=== PATIENT | female | born 2000 | race Caucasian/White ===

== ENCOUNTER 2023-02-23 12:23 | Emergency (ER) | payer OTHER, MEDICAID, SELFPAY ==
[2023-02-23 12:24] VITALS: BP 103/69; PULSE 89; RESP 18; TEMP 36.4; O2SAT 100; BMI 26.1
--- NOTE | 2023-02-23 12:48 | ED.VIS.GI ---
HPI HPI - GI History of Present Illness Chief Complaint: Abd Pain Narrative Narrative: 22-year-old female presenting with epigastric burning and nausea. She states that last night before bed she ate. She woke up at 1 AM with nausea and burning in her stomach. She had a little bit of diarrhea. No fevers or chills. No urinary or vaginal complaints. Patient has no concern for . PFSH PFSH Medical History no medical history Home Medications famotidine 20 mg tablet (Pepcid) 20 mg PO BID PRN dyspepsia #20 tabs 02/23/23 [Rx Last Taken Unknown] ondansetron 4 mg disintegrating tablet 4 mg PO Q8H PRN PRN Nausea #14 tabs 02/23/23 [Rx Last Taken Unknown] Allergy/AdvReac Type Severity Reaction Status Date / Time amoxicillin Allergy Rash Verified 02/23/23 12:26 Penicillins Allergy Rash Verified 02/23/23 12:26 Family History no significant family his Surgical History no surgical history Social History Smoking Status: Never smoker ROS ROS ED Constitutional Constitutional ED: Denies chills, fever(s) or sweats Eyes Eyes: Denies blurry vision or change in vision ENT ENT ED: Denies ear pain or sore throat Cardiovascular Cardiovascular: Denies chest pain, palpitations or racing heartbeat Respiratory/Chest Respiratory/Chest: Denies cough, dyspnea or sputum Gastrointestinal Gastrointestinal: Reports abdominal pain, diarrhea and nausea; Denies constipation or vomiting Genitourinary Genitourinary ED: Denies dysuria, hematuria or urinary frequency Musculoskeletal Musculoskeletal: Denies arthralgias, myalgias or neck pain Integumentary Denies abscess, Abrasions or rash Neurologic Neurologic: Denies headache(s), paresthesias or weakness Psychiatric Psychiatric: Denies anxiety, depression, suicidal ideation or suicidal thoughts Endocrine Endocrinology: Denies polydipsia or polyuria EXAM Physical Exam Const Vital Signs: 02/23/23 12:24 Temperature 97.5 F L Temperature Source Temporal Pulse Rate 89 Respiratory Rate 18 Blood Pressure 103/69 Blood Pressure Mean 80 Pulse Ox 100 Oxygen Delivery Method Room Air Positive well nourished General Appearance ED: NAD; Negative for pallor HEENT Reports moist mucous membranes normocephalic and atraumatic Resp normal respiratory effort Cardio regular rate and regular rhythm GI GI Narrative: Mild epigastric tenderness. Palpation: Negative for guarding, rigid, hepatomegaly or hernia Back/Spine no CVA tenderness Neuro CN's II-XII intact bilaterally Sensorium / Orientation: alert Motor Exam: strength 5/5 throughout Psych mental status grossly normal Skin General Skin Exam: Negative for jaundice or pallor MDM MDM MDM Narrative Medical decision making narrative: 22-year-old female with epigastric burning and nausea after eating pizza [employer] last night for dinner. I suspect this is likely gastritis/GERD. She is given Zofran and a GI cocktail. On reevaluation at 215 the patient is doing well. She states her symptoms have resolved. I think she is okay to go home with Zofran and Pepcid. I counseled her on foods to avoid. I do not believe she needs blood work or imaging. Return precautions discussed. Impression: 1. Gastritis Discharge Plan Triage Chief Complaint: Abd Pain ED Provider: Mario Elizondo Dx/Rx/DC Orders Prescriptions: New ondansetron 4 mg tablet,disintegrating 4 mg PO Q8H PRN PRN (Reason: Nausea) Qty: 14 0RF famotidine [Pepcid] 20 mg tablet 20 mg PO BID PRN (Reason: dyspepsia) Qty: 20 0RF Primary Care Provider: Care Physician,No Primary Referrals: Elena Moon DO [Med Staff - Active Staff] - 3-5 Days Care Physician,No Primary [Primary Care Provider] - Disposition Disposition: Home, Self Care
[2023-02-23] MEDS: Ondansetron 8 MG Tablet 4 MG PO (13:12)
[2023-02-23] MEDS: Mag Hydrox/Al Hydrox/Simeth 30 ML UDC PO (13:28)
[2023-02-23 14:41] VITALS: PULSE 89; RESP 18; O2SAT 100
== END 2023-02-23 14:41 | disposition home or self-care (01) ==
PROVIDERS: Emergency Provider Student in an Organized Health Care Education/Training Program; Visit Provider Student in an Organized Health Care Education/Training Program
DX: K29.70 Gastritis, unspecified, without bleeding (principal)
CPT/HCPCS: 99283

== ENCOUNTER 2025-01-05 10:29 | Emergency (ER) | payer MEDICAID, SELFPAY ==
[2025-01-05 10:30] VITALS: BP 116/64; PULSE 86; RESP 14; TEMP 35.9; O2SAT 100; BMI 29.0
--- NOTE | 2025-01-05 10:46 | CT_ITS ---
EXAM: CT Head Without Intravenous Contrast CLINICAL INDICATION: LEFT SIDE NUMBNESS AND TINGLING, STARTED YESTERDAY TECHNIQUE: Axial computed tomography images of the head/brain without intravenous contrast. This CT exam was performed using one or more of the following dose reduction techniques: automated exposure control, adjustment of the mA and/or kV according to patient size, and/or use of iterative reconstruction technique. COMPARISON: No relevant prior studies available. FINDINGS: BRAIN AND EXTRA-AXIAL SPACES: No acute intracranial hemorrhage, midline shift or mass effect. If symptoms persist, further evaluation with MRI is recommended. No significant white matter disease. BONES/JOINTS: Unremarkable. No acute fracture. SOFT TISSUES: Unremarkable. SINUSES: Unremarkable as visualized. No acute sinusitis. MASTOID AIR CELLS: Unremarkable as visualized. No mastoid effusion. CT/Brain/Head without Contrast IMPRESSION: No acute intracranial hemorrhage, midline shift or mass effect. If symptoms per sist, further evaluation with MRI is recommended. Reading Location: [id number]
--- NOTE | 2025-01-05 10:47 | EX.ED.DYSGE1 ---
HPI History of Present Illness Chief Complaint: Neuro S/Sx Narrative Narrative: Patient is a 24-year-old female currently 6 weeks with no other known past medical history who presents to the emergency department with a chief complaint of chest pain, left arm pain and numbness that started yesterday while at work. 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 Patient states that has been constant since then nothing has made this better or worse she states that she just laid down and went to bed last night. Patient significant other at bedside and states he was unsure if there was some drugs on the money that she was handed causing her symptoms as she was not feeling her normal self. States that since her symptoms not getting better today she came here for further evaluation management. PFSH PFS Medical History no medical history Home Medications ?Medication ?Instructions ?Recorded ?Last Taken ?Type NK 01/05/25 Unknown History Allergy/AdvReac Type Severity Reaction Status Date / Time amoxicillin Allergy Rash Verified 01/05/25 10:30 Penicillins Allergy Rash Verified 01/05/25 10:30 Family History no significant family his Surgical History no surgical history Social History Smoking Status: Current every day smoker tobacco type: smokeless tobacco ROS ROS ED ROS Narrative Constitutional: Denies fevers, chills, headaches, lightness, dizziness Eyes: Denies change in vision double vision blurry vision Cardiovascular: Complains of chest pain as noted above denies palpitations Respiratory: Denies coughing wheezing Abdomen: Denies abdominal pain nausea vomit diarrhea Genitourinary: Denies any urinary symptoms : Denies any urinary symptoms Neurological: Denies numbness, weakness, tingling Musculoskeletal: Denies back pain Skin: Denies rashes or lesions EXAM Physical Exam Narrative Exam Narrative: General: Patient lying in bed rest comfortably did not appear to be in acute distress Head: Atraumatic, normocephalic Eyes: PERRL bilaterally, EOMI bilaterally, no conjunctival injection noted Neck: Soft, supple, trachea midline Cardiovascular: Regular rate and rhythm no murmurs gallops rubs noted Respiratory: Clear to auscultation bilaterally Abdomen: Soft, nondistended, tender to palpation Extremities: +5/5 strength noted in the bilateral upper and lower extremities, radial pulses +2/4 in the bilateral extremities Neurological: Patient following commands knew that she was at [facility] the year is 2024 sensation grossly intact, NIH is 0 GCS 15 patient completed finger-nose test bilaterally without any difficulty Skin: Warm, dry, intact no rashes lesions noted Const Vital Signs: 01/05/25 10:30 01/05/25 10:59 01/05/25 11:32 Temperature 96.7 F L Temperature Source Temporal Pulse Rate 86 87 Respiratory Rate 14 19 H Blood Pressure 116/64 109/65 Blood Pressure Mean 81 79 Pulse Ox 100 100 Oxygen Delivery Method Room Air Room Air Room Air 01/05/25 12:00 Temperature Temperature Source Pulse Rate 77 Respiratory Rate 20 H Blood Pressure 113/58 L Blood Pressure Mean 76 Pulse Ox 98 Oxygen Delivery Method Room Air MDM MDM MDM Narrative Medical decision making narrative: Patient is a 24-year-old female who presented to the emergency department chief complaint of chest pain with pain rating down her left arm as well as numbness that has been persistent since this started yesterday afternoon. On the differential diagnose includes but not limited to ACS, pneumonia, pneumothorax, central venous sinus thrombosis, anxiety, accidental drug exposure. Once workup is obtained reviewed she will be reevaluated. Patient CBC was reviewed and showed no evidence leukocytosis white blood count normal at 7.5, hemoglobin was 10.9, plate count normal at 215. Sodium was normal 137, potassium normal 3.9, creatinine was 0.61. Patient's troponin was less than 6, EKG showed sinus rhythm with a rate of 81 bpm. Patient's urinalysis did not reveal any evidence of infection. Patient's drug screen negative. Patient's chest x-ray reviewed by myself and by radiology which showed no acute cardiopulmonary processes. Patient CT head and brain without contrast showed no acute intracranial hemorrhage midline shift or mass effect. On reevaluation the patient she is feeling better she like to go home at this point time. She was advised that she needs to start taking vitamins as she is currently and she is advised that she needs to follow-up with her VOCATIONAL TECHNICAL EDUCATION DIRECTOR in the outpatient setting. She was encouraged to return for worsening symptoms and concerns. She is agreeable this plan all question concerns answered she was discharged home in stable condition. Lab Data Labs: Laboratory Results - last 24 hr 01/05/25 01/05/25 10:56 11:03 WBC 7.5 RBC 4.72 Hgb 10.9 L Hct 34.5 L MCV 73.1 L MCH 23.1 L MCHC 31.6 L RDW Std Deviation 48.2 H RDW Coeff of Denis 18.5 H Plt Count 215 MPV 9.7 Immature Gran % (Auto) 0.400 Neut % (Auto) 63.4 Lymph % (Auto) 26.2 [place] % (Auto) 7.6 Eos % (Auto) 1.9 Baso % (Auto) 0.5 Absolute Neuts (auto) 4.8 Absolute Lymphs (auto) 1.96 Nucleated RBC % 0 Sodium 137 Potassium 3.9 Chloride 105 Carbon Dioxide 22.3 Anion Gap 10 BUN 10 Creatinine 0.61 L Estim Creat Clear Calc 145.17 Est GFR (MDRD) Non-Af 126 BUN/Creatinine Ratio 17.0 Glucose 95 Calcium 9.3 Troponin T High Sens < 6 Urine Color Straw Urine Clarity Clear Urine pH 6.5 Ur Specific [place] 1.010 Urine Protein Negative Urine Glucose (UA) Normal Urine Ketones Negative Urine Occult Blood Negative Urine Nitrite Negative Urine Bilirubin Negative Urine Urobilinogen Normal Ur Leukocyte Esterase Negative Urine RBC 0 SEEN Urine WBC 0 SEEN Ur Squamous Epith Cells 0-5 SEEN Urine Bacteria 0 SEEN Urine Mucus 0 SEEN Urine Opiates Screen NEGATIVE U Buprenorphine Qual NEGATIVE Ur Oxycodone Screen NEGATIVE Urine Methadone Screen NEGATIVE Urine Fentanyl Screen NEGATIVE Ur Barbiturates Screen NEGATIVE Ur Phencyclidine Scrn NEGATIVE Ur Amphetamines Screen NEGATIVE U Benzodiazepines Scrn NEGATIVE Urine Cocaine Screen NEGATIVE U Cannabinoids Screen NEGATIVE Radiography Diagnostic Testing: Clinical Impression(s) from Imaging Studies Brain CT 01/05/25 10:46 IMPRESSION: No acute intracranial hemorrhage, midline shift or mass effect. If symptoms persist, further evaluation with MRI is recommended. Reading Location: [facility] Chest X-Ray 01/05/25 11:10 IMPRESSION: No acute cardiopulmonary process. Reading Location: [facility] Discharge Plan Triage Chief Complaint: Neuro S/Sx ED Provider: Sergei Garcia Dx/Rx/DC Orders Clinical Impression: Chest pain, Currently Prescriptions: No Action NK Primary Care Provider: Care Physician,No Primary Referrals: Care Physician,No Primary [Primary Care Provider] - Twyla Cullen Rajeve, HEALTH AND SAFETY INSTRUCTOR-C [[facility]] - Activity Restrictions/Additional Instructions: Start taking vitamins. Follow-up your VOCATIONAL TECHNICAL EDUCATION DIRECTOR in the outpatient setting. Return with worsening symptoms or other concerns. Your blood work here today did not show any acute findings. Chest x-ray was normal your CT of your head was normal. Print Language: Estonian Disposition Disposition: Home, Self Care
[2025-01-05 11:01] VITALS: BMI 29.0
[2025-01-05 11:04] LABS: Absolute Lymphocyte Count 1.96 X10^3/uL (0.83-4.51); Absolute Neutrophil Count 4.8 X10^3/uL (2.0-7.7); Basophil# 0.04 X10^3/uL; Basophil% 0.5 % (0-1); Eosinophil# 0.14 X10^3/uL; Eosinophils% 1.9 % (0-5); Hematocrit 34.5 % (37-47); Hemoglobin 10.9 g/dL (12.0-15.0); Lymphocyte # 1.96 X10^3/ul (0.83-4.51); Lymphocyte % 26.2 % (19-41); Mean Corp Hgb Conc 31.6 g/dL (32-36); Mean Corpuscular Hgb 23.1 pg (27.0-32.0); Mean Corpuscular Volume 73.1 fL (81-99); Mean Platelet Vol. 9.7 fl (6.2-12.0); Monocyte# 0.57 X10^3/uL; Monocyte% 7.6 % (0-10); NRBC Flagged by Analyzer 0 % (0-5); Neutrophil # 4.75 X10^3/uL (2.7-7.7); Neutrophil % 63.4 % (47-70); Platelet Count 215 K/mm3 (150-450); RBC Distribution Width CV 18.5 % (11.6-14.6); RBC Distribution Width SD 48.2 fl (35.1-43.9); Red Blood Count 4.72 M/mm3 (4.2-5.4); White Blood Count 7.5 K/mm3 (4.4-11.0)
--- NOTE | 2025-01-05 11:10 | RAD_ITS ---
EXAM: XR Chest, 1 View CLINICAL INDICATION: CHEST PAIN, PT 6 WEEKS TECHNIQUE: Frontal view of the chest. COMPARISON: No relevant prior studies available. FINDINGS: LUNGS AND PLEURAL SPACES: Unremarkable. No consolidation. No pneumothorax. HEART: Unremarkable. No cardiomegaly. MEDIASTINUM: Unremarkable. Normal mediastinal contour. BONES/JOINTS: Unremarkable. No acute fracture. RAD/Chest 1 View (Portable) IMPRESSION: No acute cardiopulmonary process. Reading Location: [id number]
[2025-01-05 11:16] LABS: Bacteria 0 SEEN /hpf (None Seen); Mucous, Urine 0 SEEN /hpf (<or=2+); Red Blood Cells-Urine 0 SEEN /hpf (0-5); White Blood Cells 0 SEEN /hpf (0-5)
[2025-01-05 11:25] LABS: Color, Urine Straw (Yellow); Glucose, Dipstick Normal (Normal); Ketone-Dipstick Negative (Negative); Leukocyte Esterase-Dipstick Negative /ul (Negative); Nitrite-Dipstick Negative (Negative); Occult Blood-Urine Negative /ul (Negative); Protein-Dipstick Negative (Negative); Urine Bilirubin Dipstick Negative (Negative); Urine Clarity Clear (Clear); Urine Urobilinogen Normal (Normal); Urine pH 6.5 (5.0 - 8.0)
[2025-01-05 11:25] LABS: Anion Gap 10 (5-15); BUN 10 mg/dL (4-19); Calcium,Total 9.3 mg/dL (7.6-11.0); Carbon Dioxide 22.3 mmol/L (21.0-32.0); Chloride 105 mmol/L (98-108); Creatinine, Serum 0.61 mg/dL (0.70-1.20); EST Glomerular Filtration Rate 126 (>60); Estimated Creatinine Clearance 145.17 ml/min (50-250); Glucose 95 mg/dL (70-99); Potassium 3.9 mmol/L (3.3-5.1); Sodium Level 137 mmol/L (133-145); Troponin T High Sensitivity < 6 ng/L (<=14)
[2025-01-05 11:32] VITALS: BP 109/65; PULSE 87; RESP 19; O2SAT 100
[2025-01-05 11:34] LABS: Squamous Epithelial Cells - UA 0-5 SEEN /hpf (5-10)
[2025-01-05 12:00] VITALS: BP 113/58; PULSE 77; RESP 20; O2SAT 98
[2025-01-05 12:02] LABS: Amphetamine Urine NEGATIVE (<1000 ng/mL); Barbiturate Urine NEGATIVE (< 200 ng/mL); Benzodiazepine Urine NEGATIVE (< 200 ng/mL); Buprenorphine Urine NEGATIVE (< 200 ng/mL); Cocaine Urine NEGATIVE (< 300 ng/mL); Fentanyl, Urine NEGATIVE; Methadone Urine NEGATIVE (< 300 ng/mL); Opiates Urine NEGATIVE (< 300 ng/mL); Oxycodone, Urine NEGATIVE (< 100 ng/mL); PCP Urine NEGATIVE (< 25 ng/mL); THC Urine NEGATIVE (< 50 ng/mL)
[2025-01-05 12:17] VITALS: BP 110/76; PULSE 66; RESP 19; TEMP 36.6; O2SAT 97
== END 2025-01-05 12:30 | disposition home or self-care (01) ==
PROVIDERS: Emergency Provider Emergency Medicine; Visit Provider Emergency Medicine
DX: O26.891 Other specified pregnancy related conditions, first trimester (principal); R07.9 Chest pain, unspecified; Z3A.01 Less than 8 weeks gestation of pregnancy
CPT/HCPCS: 70450; 71045; 80048; 80307; 81001; 84484; 85025; 93005; 99284; A4216

== ENCOUNTER 2025-06-11 20:25 | Emergency (ER) | payer SELFPAY ==
[2025-06-11 20:25] VITALS: BP 132/70; PULSE 116; RESP 98; TEMP 37; O2SAT 100; BMI 28.5
[2025-06-11 21:24] LABS: Hematocrit 40.2 % (37-47); Hemoglobin 12.7 g/dL (12.0-15.0); Immature Granulocytes Count 0.020 X10^3/uL (0.0-0.0); Mean Corp Hgb Conc 31.6 g/dL (32-36); Mean Corpuscular Volume 73.8 fL (81-99); Mean Platelet Vol. 10.0 fl (6.2-12.0); NRBC Flagged by Analyzer 0 % (0-5); Platelet Count 239 K/mm3 (150-450); RBC Distribution Width CV 17.8 % (11.6-14.6); RBC Distribution Width SD 46.4 fl (35.1-43.9); Red Blood Count 5.45 M/mm3 (4.2-5.4); White Blood Count 10.7 K/mm3 (4.4-11.0)
[2025-06-11 21:25] VITALS: BP 106/73; PULSE 91; RESP 18; O2SAT 100
[2025-06-11 21:57] LABS: Mucous, Urine 0 SEEN /hpf (<or=2+)
[2025-06-11 22:00] VITALS: BP 111/75; PULSE 98; RESP 18; O2SAT 100
[2025-06-11 22:00] LABS: Color, Urine Yellow (Yellow); Glucose, Dipstick Normal (Normal); Ketone-Dipstick Negative (Negative); Leukocyte Esterase-Dipstick Negative /ul (Negative); Nitrite-Dipstick Negative (Negative); Occult Blood-Urine Negative /ul (Negative); Protein-Dipstick 15 mg/dl (Negative); Specific Gravity, Urine 1.015 (1.002-1.030); Urine Bilirubin Dipstick Negative (Negative)
[2025-06-11 22:05] LABS: Internal QC Validated? YES +Cl - CLEAR BKGD; Pregnancy, Serum, hCG Quali. NEGATIVE Negative; Record Kit Lot#, Serum Preg. 0000980607
--- NOTE | 2025-06-11 22:09 | US_ITS ---
PROCEDURE: US TRANSVAGINAL NON- 06/11/2025 REASON FOR EXAM: RIGHT ADNEXAL PAIN, EVALUATE TORSION TECHNIQUE: Procedure Code: USTVAG Modality: US Procedure: TRANSVAGINAL NON- COMPARISON: None. FINDINGS: Anteverted uterus appears normal in size, measuring 8.8 x 5.8 x 5 cm. Cervical nabothian cysts noted. Small hypoechoic intramural fibroid in the anterior uterine body measuring 1.1 cm. No abnormal collection within the uterine cavity. Endometrial stripe complex appears within normal limits measuring up to 1.7 cm in thickness. Right ovary measures 4.4 x 3.1 x 2.6 cm, and contains a thick-walled complex probable hemorrhagic corpus luteal cyst measuring 2.3 cm diameter. Left ovary is sonographically normal measuring 2.4 x 1.5 x 1.1 cm. Blood flow is demonstrated bilaterally within the ovaries on color Doppler. No adnexal mass. Small amount of nonspecific free fluid in the cul-de-sac. US/Transvaginal Non- IMPRESSION: 1. Blood flow is demonstrated within the ovaries; no evidence of torsion. 2. Complex likely hemorrhagic right ovarian corpus luteal cyst measuring 2.3 cm . 3. Small 1.1 cm intramural fibroid in the anterior uterine body. 4. Small amount of nonspecific free fluid in the pelvis; may be physiologic or could reflect sequelae of recent cyst rupture. Reading Location: [id number]
[2025-06-11 22:12] LABS: Red Blood Cells-Urine 0-5 SEEN /hpf (0-5); Squamous Epithelial Cells - UA 0-5 SEEN /hpf (5-10)
[2025-06-11 23:00] VITALS: BP 100/58; PULSE 90; RESP 18; O2SAT 100
[2025-06-12] VITALS: BP 105/53; PULSE 82; RESP 16; O2SAT 100
--- NOTE | 2025-06-12 00:21 | ED.VIS.FEGU ---
HPI HPI - Female History of Present Illness Chief Complaint: Abd Pain Detail of Chief Complaint: Right inguinal/adnexal pain Informant: patient Pain Pain: Positive for Pelvic Pain (Right inguinal) Onset: Days Context: Sudden Onset (Suddenly got worse today) Timing: Continuous and Waxes and wanes Quality: Positive for Cramping and Aching Location: RLQ (Inguinal/adnexal region on the right) Current Severity: Moderate Maximum Severity: Severe Worsened by: Movement and [place] Relieved by: Remaining Still Bleeding Issue: Negative for Vaginal bleeding, Passing clots or Passing tissue Associated Symptoms Associated Symptoms: Negative for Dysuria, Frequency, Urgency, Hematuria, Missed Period or Irregular Period Sexually: Positive for Active Control: No control P: 1 Narrative Narrative: Patient is a 24-year-old female. She has no segment past medical history. She presents because of abrupt onset of worsening right adnexal pain. She states there is a bump. She denies history of hernia. She does endorse nausea without vomiting diarrhea. She denies dysuria, frequency, urgency or hematuria. Her last normal menstrual period was approximate 3 weeks ago. She has no history of STI. She has no history of endometriosis or ovarian cyst. She denies dyspareunia. Denies vaginal bleeding or vaginal discharge. She denies flank pain. She denies history of renal ureterolithiasis. Prior similar symptoms: No Recent Illness/Hospitalization: No PFSH PFSH Medical History no medical history no medical history Home Medications ?Medication ?Instructions ?Recorded ?Last Taken ?Type hydrocodone-acetaminophen 5-325mg 1 tab PO Q6H PRN PRN Pain 3 days 06/12/25 Unknown Rx 5mg-325mg #10 TABLETS naproxen 500 mg tablet 500 mg PO BID #14 tabs 06/12/25 Unknown Rx Allergy/AdvReac Type Severity Reaction Status Date / Time amoxicillin Allergy Rash Verified 06/11/25 20:25 Penicillins Allergy Rash Verified 06/11/25 20:25 Family History no significant family his Surgical History no surgical history Social History (Updated 06/12/25 @ 00:[address] Rich Borja MD) household members: significant other and children Smoking Status: Current every day smoker tobacco type: smokeless tobacco ROS ROS ED Constitutional Constitutional ED: Denies chills, fever(s) or subjective Cardiovascular Cardiovascular: Denies chest pain or palpitations Respiratory/Chest Respiratory/Chest: Denies cough, dyspnea or dyspnea on exertion Gastrointestinal Gastrointestinal: Reports abdominal pain and nausea; Denies constipation, diarrhea, melena or vomiting Genitourinary Genitourinary ED: Denies dysuria, hematuria or urinary frequency Musculoskeletal Musculoskeletal: Denies arthralgias, myalgias or neck pain Integumentary Denies rash Neurologic Neurologic: Denies paresthesias Endocrine Endocrinology: Denies heat intolerance or polydipsia Hematologic/Lymphatic Hematologic/Lymphatic: Denies easy bleeding or easy bruising EXAM Physical Exam Const Vital Signs: 06/11/25 20:25 06/11/25 21:25 06/11/25 22:00 Temperature 98.6 F Temperature Source Oral Pulse Rate 116 H 91 98 Respiratory Rate 98 H 18 18 Blood Pressure 132/70 H 106/73 111/75 Blood Pressure Mean 90 84 87 Pulse Ox 100 100 100 Oxygen Delivery Method Room Air Room Air Room Air 06/11/25 23:00 06/12/25 00:00 Temperature Temperature Source Pulse Rate 90 82 Respiratory Rate 18 16 Blood Pressure 100/58 L 105/53 L Blood Pressure Mean 72 70 Pulse Ox 100 100 Oxygen Delivery Method Room Air Positive well nourished and well developed Constitutional Narrative: Patient appears uncomfortable. She does have elevated blood pressure and heart rate. Her respiratory rate was incorrectly entered. General Appearance ED: well developed HEENT HEENT Narrative: Head is atraumatic and normocephalic. Eyes PERRL and EOMs intact bilaterally General Eye ED: Negative for pale conjunctiva or scleral icterus Neck no lymphadenopathy, supple and no JVD Resp normal respiratory effort and clear to auscultation bilaterally Cardio regular rate, regular rhythm, S1 normal heart sound, no murmurs and no JVD GI normal to inspection, nondistended, normoactive bowel sounds, non-distended and no masses; Negative for non-tender Back/Spine no CVA tenderness Extremity normal to inspection and full ROM Neuro oriented x3 and CN's II-XII intact bilaterally Sensorium / Orientation: alert Psych mental status grossly normal Skin no rashes or lesions noted and no wounds MDM MDM MDM Narrative Medical decision making narrative: Differential diagnosis is ovarian cyst, ruptured ovarian cyst, torsion, ectopic , small inguinal hernia, atypical presentation for ureteral obstructing stone and unusual presentation for urinary tract infection Workup included CBC, UA and test. Since UA and CBC were unremarkable with symptoms greater than 24 hours suspect this is gynecologic. Will obtain an ultrasound with flow to rule out torsion. History & Record Review Additional record(s) reviewed:: Prior ED visit (Seen December of this year for chest pain and February 2023 for unspecified abdominal pain.) and Prior labs Lab Data Attestation: I reviewed the patient's lab results. Lab results narrative: CBC reveals microcytic indices. test is negative. UA is negative. Labs: Laboratory Results - last 24 hr 06/11/25 06/11/25 21:00 21:51 WBC 10.7 RBC 5.45 H Hgb 12.7 Hct 40.2 MCV 73.8 L MCH 23.3 L MCHC 31.6 L RDW Std Deviation 46.4 H RDW Coeff of Denis 17.8 H Plt Count 239 MPV 10.0 Immature Gran % (Auto) 0.200 Neut % (Auto) 57.1 Lymph % (Auto) 34.1 [place] % (Auto) 6.2 Eos % (Auto) 2.0 Baso % (Auto) 0.4 Absolute Neuts (auto) 6.1 Absolute Lymphs (auto) 3.64 Nucleated RBC % 0 Serum , Qual NEGATIVE Urine Color Yellow Urine Clarity Clear Urine pH 6.0 Ur Specific [place] 1.015 Urine Protein 15 H Urine Glucose (UA) Normal Urine Ketones Negative Urine Occult Blood Negative Urine Nitrite Negative Urine Bilirubin Negative Urine Urobilinogen Normal Ur Leukocyte Esterase Negative Urine RBC 0-5 SEEN Urine WBC 0-5 SEEN Ur Squamous Epith Cells 0-5 SEEN Urine Bacteria RARE Urine Mucus 0 SEEN Radiography Diagnostic Testing: Clinical Impression(s) from Imaging Studies Transvaginal US 06/11/25 22:09 IMPRESSION: 1. Blood flow is demonstrated within the ovaries; no evidence of torsion. 2. Complex likely hemorrhagic right ovarian corpus luteal cyst measuring 2.3 cm. 3. Small 1.1 cm intramural fibroid in the anterior uterine body. 4. Small amount of nonspecific free fluid in the pelvis; may be physiologic or could reflect sequelae of recent cyst rupture. Reading Location: [id number] Treatment and Re-Evaluation Narrative: Since patient has lower inguinal adnexal pain with a normal urine normal white count and negative test need to entertain possibility of torsion, ovarian cyst, ruptured ovarian cyst. Will obtain ultrasound with flow. Discharge Plan Triage Chief Complaint: Abd Pain ED Provider: Rich Borja Dx/Rx/DC Orders Clinical Impression: Complex cyst of right ovary, Rupture of cyst of right ovary, Nausea Instructions: ED Ovarian Cyst Prescriptions: New hydrocodone-acetaminophen 5-325 mg tablet 1 tab PO Q6H PRN PRN (Reason: Pain) 3 Days Qty: 10 0RF naproxen 500 mg tablet 500 mg PO BID Qty: 14 0RF Primary Care Provider: Care Physician,No Primary Referrals: Andrae Mccray DO [Non-Staff, Obstetrics-Gynecology (OBGYN)] - 1-2 Weeks Care Physician,No Primary [Primary Care Provider, Medical] Activity Restrictions/Additional Instructions: 1. If you develop severe abrupt pain return to the emergency department Print Language: Irish Disposition Disposition: Home, Self Care
[2025-06-12 00:39] VITALS: BP 97/58; PULSE 85; RESP 19; TEMP 36.8; O2SAT 100
== END 2025-06-12 00:40 | disposition home or self-care (01) ==
PROVIDERS: Emergency Provider Emergency Medicine; Visit Provider Emergency Medicine
DX: N83.201 Unspecified ovarian cyst, right side (principal); R11.0 Nausea; F17.290 Nicotine dependence, other tobacco product, uncomplicated
CPT/HCPCS: 76830; 81001; 84703; 85025; 87491; 87591; 96374; 96375; 99283; J2405